=== PATIENT | male | born 1995 | race Caucasian/White ===

== ENCOUNTER 2017-01-27 15:14 | Inpatient (IN) | payer OTHER ==
[~2017-01-27] VITALS: Ht 175.3 cm; Wt 60.5 kg
[~2017-01-27 15:14] MED LIST: RISP0.5T2 PO
[2017-01-27 16:54] VITALS: BP 127/79; PULSE 111; RESP 17; TEMP 98.4
[2017-01-27] MEDS ORDERED: LORazepam 2 MG/ML VIAL IM PRN (17:30)
[2017-01-27] MEDS ORDERED: ALUMINUM/MAGNESIUM/SIMETH 30 ML CUP PO PRN (17:30)
[2017-01-27] MEDS ORDERED: MAGNESIUM HYDROXIDE SUSP 30 ML CUP PO PRN (17:30)
[2017-01-27] MEDS ORDERED: ACETAMINOPHEN 325 MG TAB PO PRN (17:30)
[2017-01-27] MEDS: LORazepam 1 MG TAB PO PRN (21:28)
[2017-01-28 05:42] VITALS: BP 113/66; PULSE 92; RESP 16; TEMP 97.4; O2SAT 98
--- NOTE | 2017-01-28 11:45 | HHI.HP ---
Provisional Diagnosis Admission Date Jan 27, 2017 at 16:32 Monroe I. 1. Adjustment disorder with disturbance of emotions and conduct 2. History of bipolar disorder 3. Rule out some degree of higher functioning pervasive developmental disorder Monroe II. 1. Cluster B personality traits Monroe V. GAF is 40 presently Certification of Person's Competence To Provide Express and Informed Consent I have personally examined Bekah Swanson , a person being served at [facility] on, Jan 28, 2017 11:45. Express and informed consent means consent voluntarily given in writing, by a competent person, after sufficient explanation and disclosure of the subject matter involved to enable the person to make a knowing and willful decision without any element of force, fraud, deceit, duress, or other form of constraint or coercion. This person is 18 years of age or older, is not now known to be incompetent to consent to treatment with a guardian advocate, and does not have a health care surrogate or proxy currently making medical treatment decisions. I have found this person to be one of the following: [x] Competent to provide express and informed consent, as defined above, for voluntary admission to this facility and is competent to provide express and informed consent for treatment. He/she has the consistent capacity to make well reasoned, willful, and knowing decisions concerning his or her medical or mental health treatment. The person fully and consistently understands the purpose of the admission for examination/placement and is fully capable of personally exercising all rights assured [place] Incompetent to provide express and informed consent to voluntary admission, and this is incompetent to provide express and informed consent to treatment. The person must be transferred to involuntary status and a petition for a guardian advocate filed with the Circuit Court. [] Refusing to provide express and informed consent to voluntary admission but is competent to provide express and informed consent for treatment. The person must be discharged or transferred to involuntary status. Form shall be completed within 24 hours of a person's arrival at the receiving facility and filed in the clinical record of each person: 1. Admitted on a voluntary basis 2. Permitted to provide express and informed consent to his/her own treatment 3. Allowed to transfer from involuntary to voluntary status 4. Prior to permitting a person to consent to his or her own treatment after having been previously found incompetent to consent to treatment. History of Present Illness Capacity: Has Capacity HPI Mr. Swanson is a 21-year-old male with a reported history of bipolar disorder who presents in transfer from [facility] under a James act following a small amitriptyline ingestion. Records from [facility] reviewed. Reviewing are on electronic medical record, I note that the patient was admitted most recently under Dr. Nicholas in 2013 following a small medication overdose. Patient seen and examined with nurse. Chart reviewed. Case discussed with nursing staff. On my examination today, the patient presents as somewhat childlike. He says that he didn't take the amitriptyline to but "it was a vengeance thing. I got angry at my aunt because she scheduled a doctor's appointment on top of my therapist's appointment." He says that he very much wanted to speak with his therapist because of ongoing issues to be with his family and in particular his mother's cancer diagnosis. He says that he took the amitriptyline overdose to inflict psychological distress on his aunt. He denies any suicidal ideation at this time. He denies any homicidal ideation. Patient says that he has been distressed by psychosocial stressors including his mother's illness but denies any severe depression, nor can I elicit any hypomanic or manic symptoms at this time. He denies any audiovisual hallucinations. No evident delusional material. Does admit to some ongoing anxiety. Cluster B personality traits noted. Possibly some degree of symptomatology consistent with higher functioning pervasive developmental disorder. The remainder of the psychiatric ROS is negative. Past psychiatric history: The patient reports a history of bipolar disorder. He follows with Dr. Mitchell. He also has a psychotherapist. Counselor has been in contact with psychotherapist, and it appears that the patient has a history of attention seeking behavior including self-injurious behavior in the past. He denies a history of aisha china suicide attempts. He does endorse a history of nonsuicidal self-injurious behavior, namely cutting for several years. Review of Systems Except as stated in HPI: all other systems reviewed are Neg Past Psych History Psychological trauma history Patient views his mother's illness as traumatic Violence risk - others (6 mos) Lower imminent risk. No HI. No known history of violence. Violence risk - self (6 mos) Likely a component of chronic risk related to personality style. Denies SI presently. Main purpose of this admission will be to observe for acute risk factors. Substance Abuse History Drugs/Alcohol past 12 months Patient denies any abuse of drugs or alcohol. Past Family Social History Coded Allergies: Shrimp (Verified Allergy, Intermediate, VOMITING, 05/28/14) Augmentin (Verified Allergy, Unknown, 01/27/17) per [facility] Past Medical History Denies any medical history. Reported Medications Risperidone (Risperdal)0.5 Mg Tab0.5 Mg PO BID #60 TAB 06/28/14 Current Medications Medications (Trade) Dose Ordered Sig/Cathy Route Start Time Stop Time Status Last Admin (Ativan) 1 mg Q6H PRN PO 01/27/17 17:30 01/27/17 21:28 (Ativan Inj) 1 mg Q6H PRN IM 01/27/17 17:30 (Tylenol) 650 mg Q4H PRN PO 01/27/17 17:30 (Milk Of Magnesia Liq) 30 ml DAILY PRN PO 01/27/17 17:30 (Mag-Al Plus Susp Liq) 30 ml Q6H PRN PO 01/27/17 17:30 Family History Patient reports that depression and anxiety run in his mother's side of the family. He reports that his father had substance use issues. Social History Patient lives by himself. He has a 10th grade education. He is on disability. He is single with no children. He denies any history. Denies any access to guns or firearms. He is an atheist. Patient's Strengths (min. 2) In a monitored setting. Verbally fluent. Physical Exam Physical examination completed at referring hospital. On my examination today, the patient appears well-nourished and well-developed and in no acute physical distress. No motoric abnormalities noted. Laboratories and vital signs reviewed: Vital Signs Vital Signs Date Time Temp Pulse Resp B/P Pulse Ox O2 Delivery O2 Flow Rate FiO2 01/28/17 05:42 97.4 92 16 113/66 98 Lab Results Laboratories from outside hospital reviewed: CBC unremarkable. CMP unremarkable. Urine toxicology positive for benzodiazepines and tricyclics. Urinalysis was obtained by Cornelius catheter and revealed moderate blood. Mental Status Examination Patient is casually dressed. He is fairly well groomed and certainly maintaining basic hygiene. He is awake and alert and oriented to person and hospital at least. No evidence of delirium. No motor abnormalities noted. Speech is within normal limits for rate, tone and volume. Language and fund of knowledge seem average. Focus and concentration grossly intact. Memory likewise grossly intact on clinical exam. Mood is mildly depressed and affect is somewhat childlike but generally fairly full and reactive. Thought process linear. No loosening of associations. No evident delusional material. Denies audiovisual hallucinations. Denies suicidal or homicidal ideation at this time. Insight and judgment are presently unclear. Assessment & Plan Problem List: (1) Adjustment disorder with mixed disturbance of emotions and conduct ICD Code: F43.25 (2) History of bipolar disorder ICD Code: Z86.59 Assessment & Plan This is a 21-year-old male with psychiatric history as detailed above who presents on a James act and transfer from [facility]. On my evaluation today, the patient insists that he made his presenting ingestion in order to inflict psychological distress on a family member. He denies that this was suicidal in nature. Counselor has obtain collateral from the patient' s outpatient psychotherapist at supports a history of attention seeking self injury. My suspicion is that the presenting ingestion was impulsive and not suicidal in nature. However, the patient does have enough risk factors to warrant observation over the weekend. I will plan to admit the patient to the inpatient psychiatric unit for observation. Admit inpatient. Voluntary status. Counselor is obtaining medication list from outpatient provider, and I will plan to resume the patient's scheduled psychotropic. Ativan as needed for anxiety, Benadryl as needed for sleep. Vitals every shift. Counselor to see. Encouraged participation in group and unit activities. Disposition planning. Estimated length of stay: 3-5 days. Discharge Planning Pending outcome of observation Request HC Surrog/Guard Advoc?: No Chris Murray MD Jan 28, 2017 11:45
[2017-01-28] MEDS ORDERED: diphenhydrAMINE HCL 50 MG CAP PO PRN (14:30)
--- NOTE | 2017-01-28 16:30 | EKG ---
Date Performed: 01/27/2017 Time Performed: 19:57:37 PTAGE: 21 years EKG: Sinus rhythm POSSIBLE LEFT ATRIAL ENLARGEMENT INCOMPLETE RIGHT BUNDLE BRANCH BLOCK BORDERLINE ECG PREVIOUS TRACING : 03/24/2014 00.17 Compared to prior tracing no significant change DOCTOR: Bipin Brooke Interpretating Date/Time 01/28/2017 16:28:08
[2017-01-28 17:11] VITALS: BP 121/75; PULSE 100; RESP 16; O2SAT 100
[2017-01-28] MEDS: LORazepam 1 MG TAB PO PRN (21:37)
[2017-01-29 05:26] VITALS: BP 100/69; PULSE 94; RESP 20; TEMP 97.4; O2SAT 97
[2017-01-29] MEDS: ARIPiprazole 5 MG TAB PO SCH (08:08)
--- NOTE | 2017-01-29 16:05 | HHI.PYPN ---
Subjective Remarks Pt seen and discussed with staff. He has been cooperative with medications and care. No disruptive behavior on unit. He is noted to make grandiose ideations and states that his life is more valuable than most people's lives. He denies medication side effects. He c/o of poor impulse control and exhibits very limited coping skills. No SI./HI Objective Alert: Yes Wiggins: Person, Place, Date, Situation Mood: Anxious Affect: Restricted Memory Intact: Immediate, Recent, Remote Hallucinations: Other (none) Delusions: No Delusion Type: Other (none) Suicidal: Ideation (denies) Homicidal: Ideation (denies) Insight/Judgment poor Vitals/IOs Vital Signs Date Time Temp Pulse Resp B/P Pulse Ox O2 Delivery O2 Flow Rate FiO2 01/29/17 05:26 97.4 94 20 100/69 97 Assessment & Plan Problem List: (1) Adjustment disorder with mixed disturbance of emotions and conduct ICD Code: F43.25 (2) History of bipolar disorder ICD Code: Z86.59 Assessment & Plan Continue current tx plan. Estimated LOS: days Justification for Cont. Inpt. impairments in safety Request HC Surrog/Guard Advoc?: No Erica Lo MD Jan 29, 2017 16:05
[2017-01-29 18:01] VITALS: BP 135/79; PULSE 91; RESP 19; TEMP 98.1; O2SAT 100
[2017-01-29] MEDS: LORazepam 1 MG TAB PO PRN (22:40)
[2017-01-30 04:47] VITALS: BP 112/70; PULSE 96; RESP 16; TEMP 97.7; O2SAT 97
[2017-01-30] MEDS: ARIPiprazole 5 MG TAB PO SCH (08:55)
[2017-01-30 18:22] VITALS: BP 125/79; PULSE 109; RESP 18; TEMP 98.9; O2SAT 98
--- NOTE | 2017-01-30 18:47 | HHI.PYPN ---
Subjective Remarks Pt seen and discussed with staff. He reports that mood is improving and he feels less anxious. Staff report that he has been participating more in therapeutic activities. He c/o of poor sleep. No SI/HI. Objective Alert: Yes Cath[place]in: Person, Place, Date, Situation Mood: Calm Affect: Restricted Memory Intact: Immediate, Recent, Remote Hallucinations: Other (none) Delusions: No Delusion Type: Other (none) Suicidal: Ideation (denies) Homicidal: Ideation (denies) Insight/Judgment poor Vitals/IOs Vital Signs Date Time Temp Pulse Resp B/P Pulse Ox O2 Delivery O2 Flow Rate FiO2 01/30/17 18:22 98.9 109 18 125/79 98 Intake and Output 01/29/17 01/29/17 01/30/17 08:00 16:00 00:00 Intake Total 420 ml Balance 420 ml Assessment & Plan Problem List: (1) Adjustment disorder with mixed disturbance of emotions and conduct ICD Code: F43.25 (2) History of bipolar disorder ICD Code: Z86.59 Assessment & Plan Trazodone for sleep. Risks vs benefits discussed with pt. Continue current tx plan Estimated LOS: days Justification for Cont. Inpt. monitoring for safety Request HC Surrog/Guard Advoc?: No Erica Lo MD Jan 30, 2017 18:47
[2017-01-30] MEDS: LORazepam 1 MG TAB PO PRN (20:48)
[2017-01-31] MEDS: ARIPiprazole 5 MG TAB PO SCH (09:08)
[2017-01-31] MEDS ORDERED: ARIP1TAB11 PO (12:13)
--- NOTE | 2017-01-31 12:14 | HHI.DS ---
Psychiatry Discharge Summary Inpatient Psychiatric care?: Yes Advance Directive: No Reason Not Provided: Due to Patient Condition Mental Health AdvanceDirective: No Health Care Proxy: No Admission Admission Date Jan 27, 2017 at 16:32 Admission Diagnosis: (1) Adjustment disorder with mixed disturbance of emotions and conduct ICD Code: F43.25 (2) History of bipolar disorder ICD Code: Z86.59 Brief History Mr. Swanson is a 21-year-old male with a reported history of bipolar disorder who presents in transfer from [facility] under a James act following a small amitriptyline ingestion. Records from [facility] reviewed. Reviewing are on electronic medical record, I note that the patient was admitted most recently under Dr. Nicholas in 2013 following a small medication overdose. Patient seen and examined with nurse. Chart reviewed. Case discussed with nursing staff. On my examination today, the patient presents as somewhat childlike. He says that he didn't take the amitriptyline to but "it was a vengeance thing. I got angry at my aunt because she scheduled a doctor's appointment on top of my therapist's appointment." He says that he very much wanted to speak with his therapist because of ongoing issues to be with his family and in particular his mother's cancer diagnosis. He says that he took the amitriptyline overdose to inflict psychological distress on his aunt. He denies any suicidal ideation at this time. He denies any homicidal ideation. Patient says that he has been distressed by psychosocial stressors including his mother's illness but denies any severe depression, nor can I elicit any hypomanic or manic symptoms at this time. He denies any audiovisual hallucinations. No evident delusional material. Does admit to some ongoing anxiety. Cluster B personality traits noted. Possibly some degree of symptomatology consistent with higher functioning pervasive developmental disorder. The remainder of the psychiatric ROS is negative. Past psychiatric history: The patient reports a history of bipolar disorder. He follows with Dr. Mitchell. He also has a psychotherapist. Counselor has been in contact with psychotherapist, and it appears that the patient has a history of attention seeking behavior including self-injurious behavior in the past. He denies a history of aisha china suicide attempts. He does endorse a history of nonsuicidal self-injurious behavior, namely cutting for several years. Tobacco Use In Past 30 Days: No Tobacco Past 30 Days Alcohol Use: Never Hospital Course Patient was admitted to a locked, inpatient psychiatric unit. Appropriate precautions were in place throughout patient's hospital stay. Patient was seen and examined daily on the unit by psychiatry and also visited by counselor. Psychotropic medications were adjusted. Patient tolerated medications well without side effects. There was no evidence of any suicidality or homicidality on the inpatient unit. The patient remained in good behavioral control and was medication compliant. Charting indicates that the patient has been sleeping and eating well. On the day of discharge: Patient seen and examined with counselor and nurse. Chart reviewed. Case discussed with nursing staff. On my examination today, the patient is requesting discharge from the inpatient psychiatric unit. He denies any suicidal or homicidal ideation, intent or plan on direct questioning. He says that he has settled his dispute with his aunt and bears her no ill will at this time. No issues with mood. No depressive or hypomanic/manic symptoms. He denies audiovisual hallucinations and I can elicit no delusional material. He denies side effects from medications. No physical complaints. Weighing the acute, chronic, and protective factors and based on the available evidence, I immigration judge to a reasonable degree of medical certainty that the patient is at low imminent risk of harm to self or others from a mental illness as defined a James act and his level of function is adequate for outpatient care. Patient will be discharged today with psychiatric follow-up as arranged by counselor. Patient is also to follow-up with primary care. I have counseled the patient regarding warning signs for need to return to psychiatric emergency room as part of the general safety plan. I have provided the patient with prescriptions for medications of which he does not presently have an adequate supply. Results Blood Pressure 125 / 79 Vital Signs Date Time Temp Pulse Resp B/P Pulse Ox O2 Delivery O2 Flow Rate FiO2 01/30/17 18:22 98.9 109 18 125/79 98 Laboratories performed at outside hospital prior to transfer to [place]. Please see H&P. Summary of Procedures None done Imaging None done Pending results at discharge: No Medications # of Antipsychotic meds at D/C: 1 Approp Antipsych med options 1 - Minimum of three failed multiple trials of monotherapy. 2 - Documented plan to taper to monotherapy due to previous use of multiple meds OR cross-taper in progress at D/C. 3 - Documentation of augmentation of Clozapine. 4 - Justification other than those listed in allowable values 1-3, document here : Discharge Discharge Date: Jan 31, 2017 Discharge Diagnosis: (1) Adjustment disorder with mixed disturbance of emotions and conduct Diagnosis: Principal (resolved) ICD Code: F43.25 (2) History of bipolar disorder Diagnosis: Secondary (stable) ICD Code: Z86.59 GAF on discharge is 55 Mental Status Exam at Disch Patient is casually dressed. He is well groomed. He is awake and alert and oriented to person and hospital at least. No evidence of delirium. No motoric abnormalities noted. Speech is within normal limits for rate, tone and volume. Language and fund of knowledge seemed average. Focus and concentration intact. Mood fair and affect full and reactive if a little bit childlike. Thought process linear. No loosening of associations. No evident delusional material. Denies audiovisual hallucinations. Denies suicidal or homicidal ideation, intent or plan. Insight and judgment are fair at best. Pt Condition on Discharge: Stable Discharge Disposition: Discharge Home Discharge Instructions Diet Instructions: As Tolerated, No Restrictions Activities you can perform: Weight Bearing as Donna Scheduled Appointment: as per counselor's notes New Medications: Aripiprazole (Aripiprazole) 5 Mg Tab 5 MG PO DAILY Mental Health Days 15 Ref 1 TAB Discontinued Medications: Risperidone (Risperdal) 0.5 Mg Tab 0.5 MG PO BID #60 TAB Discharge Time <= 30 minutes Discharge/Advance Care Plan Health Problems: (1) Adjustment disorder with mixed disturbance of emotions and conduct (2) History of bipolar disorder Goals to promote your health * To prevent worsening of your condition and complications * To maintain your health at the optimal level Directions to meet your goals Take your medications as prescribed Follow your dietary instruction Follow activity as directed Keep your appointments as scheduled Take your immunizations and boosters as scheduled If your symptoms worsen call your PCP, if no PCP go to Urgent Care Center or Emergency Room For 28/02 questions related to your inpatient stay or results of tests pending at discharge, please contact Dr. Chris Murray at Smoking is Dangerous to Your Health. Avoid second hand smoking Chris Murray MD Jan 31, 2017 12:13
== END 2017-01-31 19:40 | disposition home or self-care (01) | DRG 882 ==
LOC: H260 16:32
PROVIDERS: ADMIT Psychiatry & Neurology Psychiatry; ATTEND Psychiatry & Neurology Psychiatry
DX: F43.25 Adjustment disorder with mixed disturbance of emotions and conduct (principal); F41.9 Anxiety disorder, unspecified; Z86.59 Personal history of other mental and behavioral disorders; Z81.8 Family history of other mental and behavioral disorders; Z91.5 Personal history of self-harm
CPT/HCPCS: 93005; Q0163